=== PATIENT | male | born 1955 | race Caucasian/White ===

== ENCOUNTER 2017-11-01 05:01 | Emergency (ER) | payer MEDICARE ==
[~2017-11-01] VITALS: Ht 167.6 cm; Wt 66.0 kg
[~2017-11-01 05:01] MED LIST: BACLOFEN20 MG PO; DIAZEPAM5 MG PO; DILAUDID4 MG PO; EMBEDA; HYDROCODONE/ACE1 TAB PO; LEVETIRACETAM500 MG PO; MIRALAX3350 N1 PO; MORPHINE SUL30 M3 PO; ROPINIROLE3 MG PO; VIMPAT100 MG PO
[2017-11-01] MEDS ORDERED: ZUBSOLV SUB SL (05:23)
[2017-11-01 05:26] LABS: HEMATOCRIT 39.9 % (39.0-50.0); IMMATURE GRANULOCYTES 0.2 % (0.0-5.0); MEAN CELL VOLUME 89.9 fL CALC (80.0-100.0); MEAN CORPUSCULAR HGB 30.9 pG CALC (26.0-32.0); MEAN CORPUSCULAR HGB CONC 34.3 g/L CALC (32.0-36.0); NEUT# 3.65 thou/uL (1.82-7.42); RED BLOOD COUNT 4.44 mill/uL (4.70-6.10); RED CELL DISTRI WIDTH 14.6 % (11.5-15.5)
[2017-11-01 05:28] LABS: HEMOGLOBIN 13.7 g/dl (14.0-18.0)
[2017-11-01 06:09] LABS: MYOGLOBIN 60 ng/mL (0 - 121)
[2017-11-01 06:29] LABS: ALBUMIN 4.1 g/dL (3.2-5.0); ALKALINE PHOSPHATASE 52 u/l (38-126); ANION GAP 11 (6-22 (CALC)); BILIRUBIN, TOTAL 0.8 mg/dL (0.0-1.4); BUN 13 mg/dL (8-23); BUN/CREATININE RATIO 23 (12-20 (CALC)); CARBON DIOXIDE 29 mmol/l (22-30); CHLORIDE 105 mmol/l (95-108); CREATININE 0.6 mg/dL (0.7-1.3); GFR > 60 ML/MIN (>=60 (CALC)); GFR FOR AFR.AMER. > 60 ML/MIN (>=60 (CALC)); LIPASE 37 u/l (23-300); POTASSIUM 4.3 mmol/l (3.5-5.1); SGOT/AST 33 u/l (19-48); SGPT/ALT 23 u/l (11-66); SODIUM 141 mmol/l (137-146)
[2017-11-01 07:50] LABS: URINE BILIRUBIN - DIPSTICK NEGATIVE (NEGATIVE); URINE BLOOD DIPSTICK MODERATE (NEGATIVE); URINE COLOR YELLOW; URINE GLUCOSE - DIPSTICK NEGATIVE (NEGATIVE); URINE KETONE 15 mg/dL (NEGATIVE); URINE LEUK ESTERASE NEGATIVE (NEGATIVE); URINE PH 5.5 (4.5-8.0); URINE PROTEIN - DIPSTICK NEGATIVE (NEG-TRACE); URINE SPECIFIC GRAVITY >=1.030; URINE UROBILINOGEN - DIPSTICK 0.2 E.U./dL (0.2)
[2017-11-01 07:52] LABS: URINE CLARITY CLEAR
[2017-11-01 08:00] LABS: URINE EPITHELIAL CELLS RARE EPI/hpf (0-FEW); URINE NITRITE - DIPSTICK NEGATIVE (Negative); URINE WBC 0-2 WBC/hpf (0-5)
[2017-11-01] MEDS ORDERED: ONDANSETRON4 MG PO (08:03)
[2017-11-01] MEDS ORDERED: OMEPRAZOLE20 M2 PO (08:03)
[2017-11-01 08:07] VITALS: BP 120/62
== END 2017-11-01 08:16 | disposition home or self-care (01) ==
LOC: ED 05:01
PROVIDERS: Emergency Medicine; Family Medicine
DX: K52.9 Noninfective gastroenteritis and colitis, unspecified (principal); K29.70 Gastritis, unspecified, without bleeding; G40.909 Epilepsy, unspecified, not intractable, without status epilepticus; J44.9 Chronic obstructive pulmonary disease, unspecified; F43.10 Post-traumatic stress disorder, unspecified; F17.290 Nicotine dependence, other tobacco product, uncomplicated
CPT/HCPCS: Q9967

== ENCOUNTER 2018-02-21 12:47 | Emergency (ER) | payer MEDICARE ==
[~2018-02-21] VITALS: Ht 167.6 cm; Wt 70.9 kg
[~2018-02-21 12:47] MED LIST changes: +OMEPRAZOLE20 M2 PO; +ONDANSETRON4 MG PO; +ZUBSOLV SUB SL
[2018-02-21] MEDS ORDERED: LYRICA50 MG PO ×2 (13:02→13:19)
[2018-02-21 14:30] VITALS: BP 134/83
== END 2018-02-21 14:30 | disposition home or self-care (01) ==
LOC: ED 12:47
PROC: 2W3CX1Z Immobilization of Right Lower Arm using Splint (ICD-10-PCS; principal; 2018-02-21)
DX: S62.396A Other fracture of fifth metacarpal bone, right hand, initial encounter for closed fracture (principal); G40.909 Epilepsy, unspecified, not intractable, without status epilepticus; J44.9 Chronic obstructive pulmonary disease, unspecified; F43.10 Post-traumatic stress disorder, unspecified; F17.210 Nicotine dependence, cigarettes, uncomplicated; W22.09XA Striking against other stationary object, initial encounter; Y93.89 Activity, other specified; Y92.009 Unspecified place in unspecified non-institutional (private) residence as the place of occurrence of the external cause

== ENCOUNTER 2018-04-01 01:51 | Inpatient (IN) | payer MEDICARE ==
[2018-04-01] VITALS (41 sets, daily range): BP systolic 112–184; BP diastolic 72–100
[~2018-04-01] VITALS: Ht 167.6 cm; Wt 70.1 kg
[~2018-04-01 01:51] MED LIST changes: +LYRICA50 MG PO
[2018-04-01 02:37] LABS: HEMATOCRIT 44.9 % (39.0-50.0); HEMOGLOBIN 15.4 g/dl (14.0-18.0); IMMATURE GRANULOCYTES 0.2 % (0.0-5.0); MEAN CELL VOLUME 88.4 fL CALC (80.0-100.0); MEAN CORPUSCULAR HGB 30.3 pG CALC (26.0-32.0); MEAN CORPUSCULAR HGB CONC 34.3 g/L CALC (32.0-36.0); NEUT# 4.56 thou/uL (1.82-7.42); RED BLOOD COUNT 5.08 mill/uL (4.70-6.10); RED CELL DISTRI WIDTH 14.6 % (11.5-15.5)
[2018-04-01 02:40] LABS: URINE BILIRUBIN - DIPSTICK NEGATIVE (NEGATIVE); URINE BLOOD DIPSTICK SMALL (NEGATIVE); URINE COLOR YELLOW; URINE GLUCOSE - DIPSTICK NEGATIVE (NEGATIVE); URINE KETONE NEGATIVE (NEGATIVE); URINE LEUK ESTERASE NEGATIVE (NEGATIVE); URINE NITRITE - DIPSTICK NEGATIVE (Negative); URINE PH 5.5 (4.5-8.0); URINE PROTEIN - DIPSTICK NEGATIVE (NEG-TRACE); URINE SPECIFIC GRAVITY <=1.005; URINE UROBILINOGEN - DIPSTICK 0.2 E.U./dL (0.2)
[2018-04-01 02:44] LABS: COCAINE NEGATIVE (NEGATIVE); METHADONE NEGATIVE (NEGATIVE); TETRAHYDROCANNABIONOL POSITIVE (NEGATIVE)
[2018-04-01 02:45] LABS: BARBITURATES NEGATIVE (NEGATIVE); OXCYCODONE NEGATIVE (NEGATIVE); TRICYLIC ANTIDEPRESSANTS NEGATIVE (NEGATIVE)
[2018-04-01 02:47] LABS: URINE RBC 0-2 RBC/hpf (0-5); URINE SQUAMOUS EPITHELIAL CELL FEW EPI/hpf (0-FEW); URINE WBC 0-2 WBC/hpf (0-5)
[2018-04-01 02:51] LABS: ALBUMIN 4.7 g/dL (3.2-5.0); ALKALINE PHOSPHATASE 76 u/l (38-126); ANION GAP 17 (6-22 (CALC)); BILIRUBIN, TOTAL 0.4 mg/dL (0.0-1.4); BUN 10 mg/dL (8-23); BUN/CREATININE RATIO 15 (12-20 (CALC)); CARBON DIOXIDE 24 mmol/l (22-30); CHLORIDE 109 mmol/l (95-108); CREATININE 0.7 mg/dL (0.7-1.3); GFR > 60 ML/MIN (>=60 (CALC)); GFR FOR AFR.AMER. > 60 ML/MIN (>=60 (CALC)); POTASSIUM 4.2 mmol/l (3.5-5.1); SGOT/AST 27 u/l (19-48); SODIUM 146 mmol/l (137-146); TOTAL PROTEIN 7.7 g/dL (6.3-8.2)
[2018-04-01 02:52] LABS: ETHYL ALCOHOL 101 mg/dl (0-30)
[2018-04-01 23:27] LABS: HEMATOCRIT 45.3 % (39.0-50.0); HEMOGLOBIN 15.1 g/dl (14.0-18.0); IMMATURE GRANULOCYTES 0.3 % (0.0-5.0); MEAN CELL VOLUME 90.6 fL CALC (80.0-100.0); MEAN CORPUSCULAR HGB 30.2 pG CALC (26.0-32.0); MEAN CORPUSCULAR HGB CONC 33.3 g/L CALC (32.0-36.0); NEUT# 10.88 thou/uL (1.82-7.42); RED CELL DISTRI WIDTH 15.1 % (11.5-15.5)
[2018-04-01 23:39] LABS: ALBUMIN 3.8 g/dL (3.2-5.0); ALKALINE PHOSPHATASE 68 u/l (38-126); ANION GAP 11 (6-22 (CALC)); BILIRUBIN, TOTAL 0.8 mg/dL (0.0-1.4); BUN 7 mg/dL (8-23); BUN/CREATININE RATIO 11 (12-20 (CALC)); CARBON DIOXIDE 29 mmol/l (22-30); CHLORIDE 110 mmol/l (95-108); CREATININE 0.7 mg/dL (0.7-1.3); GFR > 60 ML/MIN (>=60 (CALC)); GFR FOR AFR.AMER. > 60 ML/MIN (>=60 (CALC)); MAGNESIUM 1.7 mg/dL (1.6-2.3); POTASSIUM 3.9 mmol/l (3.5-5.1); SGOT/AST 24 u/l (19-48); SODIUM 146 mmol/l (137-146); TOTAL PROTEIN 6.5 g/dL (6.3-8.2)
[2018-04-02] VITALS (106 sets, daily range): BP systolic 78–172; BP diastolic 3–97
[2018-04-02 06:17] LABS: HEMATOCRIT 47.4 % (39.0-50.0); HEMOGLOBIN 15.5 g/dl (14.0-18.0); IMMATURE GRANULOCYTES 0.4 % (0.0-5.0); MEAN CELL VOLUME 91.9 fL CALC (80.0-100.0); MEAN CORPUSCULAR HGB CONC 32.7 g/L CALC (32.0-36.0); NEUT# 13.93 thou/uL (1.82-7.42); RED BLOOD COUNT 5.16 mill/uL (4.70-6.10); RED CELL DISTRI WIDTH 15.3 % (11.5-15.5)
[2018-04-02 06:37] LABS: ALBUMIN 3.8 g/dL (3.2-5.0); ALKALINE PHOSPHATASE 74 u/l (38-126); AMYLASE 36 u/l (30-110); ANION GAP 12 (6-22 (CALC)); BILIRUBIN, TOTAL 0.6 mg/dL (0.0-1.4); BUN 8 mg/dL (8-23); BUN/CREATININE RATIO 11 (12-20 (CALC)); CARBON DIOXIDE 30 mmol/l (22-30); CHLORIDE 108 mmol/l (95-108); CREATININE 0.7 mg/dL (0.7-1.3); GFR > 60 ML/MIN (>=60 (CALC)); GFR FOR AFR.AMER. > 60 ML/MIN (>=60 (CALC)); LIPASE 27 u/l (23-300); MAGNESIUM 1.7 mg/dL (1.6-2.3); POTASSIUM 3.8 mmol/l (3.5-5.1); SGOT/AST 26 u/l (19-48); SODIUM 147 mmol/l (137-146); TOTAL PROTEIN 6.5 g/dL (6.3-8.2)
[2018-04-03] VITALS (57 sets, daily range): BP systolic 111–177; BP diastolic 71–97
[2018-04-03 05:21] LABS: HEMATOCRIT 44.1 % (39.0-50.0); HEMOGLOBIN 14.6 g/dl (14.0-18.0); IMMATURE GRANULOCYTES 0.7 % (0.0-5.0); MEAN CELL VOLUME 91.7 fL CALC (80.0-100.0); MEAN CORPUSCULAR HGB 30.4 pG CALC (26.0-32.0); MEAN CORPUSCULAR HGB CONC 33.1 g/L CALC (32.0-36.0); NEUT# 14.12 thou/uL (1.82-7.42); RED BLOOD COUNT 4.81 mill/uL (4.70-6.10); RED CELL DISTRI WIDTH 15.3 % (11.5-15.5)
[2018-04-03 05:52] LABS: ALKALINE PHOSPHATASE 61 u/l (38-126); AMYLASE < 30 u/l (30-110); ANION GAP 11 (6-22 (CALC)); BILIRUBIN, TOTAL 0.6 mg/dL (0.0-1.4); BUN 8 mg/dL (8-23); BUN/CREATININE RATIO 15 (12-20 (CALC)); CARBON DIOXIDE 25 mmol/l (22-30); CHLORIDE 108 mmol/l (95-108); CREATININE 0.5 mg/dL (0.7-1.3); GFR > 60 ML/MIN (>=60 (CALC)); GFR FOR AFR.AMER. > 60 ML/MIN (>=60 (CALC)); LIPASE 11 u/l (23-300); MAGNESIUM 1.6 mg/dL (1.6-2.3); POTASSIUM 3.8 mmol/l (3.5-5.1); SGOT/AST 21 u/l (19-48); SODIUM 140 mmol/l (137-146); TOTAL PROTEIN 5.3 g/dL (6.3-8.2)
[2018-04-03 05:56] LABS: ALBUMIN 2.8 g/dL (3.2-5.0)
[2018-04-04] VITALS (9 sets, daily range): BP systolic 134–170; BP diastolic 62–94
[2018-04-04 04:34] LABS: HEMATOCRIT 39.4 % (39.0-50.0); HEMOGLOBIN 13.6 g/dl (14.0-18.0); IMMATURE GRANULOCYTES 0.4 % (0.0-5.0); MEAN CELL VOLUME 87.9 fL CALC (80.0-100.0); MEAN CORPUSCULAR HGB 30.4 pG CALC (26.0-32.0); MEAN CORPUSCULAR HGB CONC 34.5 g/L CALC (32.0-36.0); NEUT# 12.34 thou/uL (1.82-7.42); RED BLOOD COUNT 4.48 mill/uL (4.70-6.10); RED CELL DISTRI WIDTH 14.4 % (11.5-15.5)
[2018-04-04 05:05] LABS: ALBUMIN 3.3 g/dL (3.2-5.0); ALKALINE PHOSPHATASE 69 u/l (38-126); AMYLASE < 30 u/l (30-110); ANION GAP 14 (6-22 (CALC)); BILIRUBIN, TOTAL 1.6 mg/dL (0.0-1.4); BUN 6 mg/dL (8-23); BUN/CREATININE RATIO 13 (12-20 (CALC)); CARBON DIOXIDE 25 mmol/l (22-30); CHLORIDE 103 mmol/l (95-108); CREATININE 0.4 mg/dL (0.7-1.3); GFR > 60 ML/MIN (>=60 (CALC)); GFR FOR AFR.AMER. > 60 ML/MIN (>=60 (CALC)); LIPASE 22 u/l (23-300); MAGNESIUM 1.4 mg/dL (1.6-2.3); POTASSIUM 3.4 mmol/l (3.5-5.1); SGOT/AST 32 u/l (19-48); SODIUM 139 mmol/l (137-146)
[2018-04-05] VITALS (15 sets, daily range): BP systolic 138–169; BP diastolic 61–92
[2018-04-05 04:57] LABS: HEMATOCRIT 37.5 % (39.0-50.0); IMMATURE GRANULOCYTES 0.4 % (0.0-5.0); MEAN CELL VOLUME 86.6 fL CALC (80.0-100.0); MEAN CORPUSCULAR HGB CONC 34.7 g/L CALC (32.0-36.0); NEUT# 7.7 thou/uL (1.82-7.42); RED BLOOD COUNT 4.33 mill/uL (4.70-6.10); RED CELL DISTRI WIDTH 13.9 % (11.5-15.5)
[2018-04-05 05:28] LABS: ALBUMIN 2.9 g/dL (3.2-5.0); ALKALINE PHOSPHATASE 59 u/l (38-126); AMYLASE < 30 u/l (30-110); BILIRUBIN, TOTAL 1.6 mg/dL (0.0-1.4); BUN 6 mg/dL (8-23); BUN/CREATININE RATIO 14 (12-20 (CALC)); CARBON DIOXIDE 27 mmol/l (22-30); CHLORIDE 103 mmol/l (95-108); CREATININE 0.5 mg/dL (0.7-1.3); GFR > 60 ML/MIN (>=60 (CALC)); GFR FOR AFR.AMER. > 60 ML/MIN (>=60 (CALC)); LIPASE 14 u/l (23-300); MAGNESIUM 1.7 mg/dL (1.6-2.3); SGOT/AST 43 u/l (19-48); SODIUM 141 mmol/l (137-146); TOTAL PROTEIN 5.4 g/dL (6.3-8.2)
[2018-04-05 05:39] LABS: ANION GAP 14 (6-22 (CALC)); POTASSIUM 2.6 mmol/l (3.5-5.1)
[2018-04-06] VITALS (10 sets, daily range): BP systolic 135–160; BP diastolic 72–91
[2018-04-06 05:13] LABS: HEMATOCRIT 36.7 % (39.0-50.0); HEMOGLOBIN 12.8 g/dl (14.0-18.0); IMMATURE GRANULOCYTES 0.3 % (0.0-5.0); MEAN CELL VOLUME 86.2 fL CALC (80.0-100.0); MEAN CORPUSCULAR HGB CONC 34.9 g/L CALC (32.0-36.0); NEUT# 6.38 thou/uL (1.82-7.42); RED BLOOD COUNT 4.26 mill/uL (4.70-6.10); RED CELL DISTRI WIDTH 13.9 % (11.5-15.5)
[2018-04-06 05:23] LABS: ALKALINE PHOSPHATASE 55 u/l (38-126); AMYLASE < 30 u/l (30-110); ANION GAP 11 (6-22 (CALC)); BILIRUBIN, TOTAL 1.2 mg/dL (0.0-1.4); BUN 5 mg/dL (8-23); BUN/CREATININE RATIO 12 (12-20 (CALC)); CARBON DIOXIDE 28 mmol/l (22-30); CHLORIDE 103 mmol/l (95-108); CREATININE 0.4 mg/dL (0.7-1.3); GFR > 60 ML/MIN (>=60 (CALC)); GFR FOR AFR.AMER. > 60 ML/MIN (>=60 (CALC)); LIPASE 26 u/l (23-300); MAGNESIUM 1.6 mg/dL (1.6-2.3); POTASSIUM 2.7 mmol/l (3.5-5.1); SGOT/AST 49 u/l (19-48); SODIUM 140 mmol/l (137-146); TOTAL PROTEIN 5.4 g/dL (6.3-8.2)
[2018-04-07] VITALS (13 sets, daily range): BP systolic 132–165; BP diastolic 74–96
[2018-04-07 05:21] LABS: HEMATOCRIT 36.1 % (39.0-50.0); HEMOGLOBIN 12.5 g/dl (14.0-18.0); IMMATURE GRANULOCYTES 0.3 % (0.0-5.0); MEAN CELL VOLUME 87.2 fL CALC (80.0-100.0); MEAN CORPUSCULAR HGB 30.2 pG CALC (26.0-32.0); MEAN CORPUSCULAR HGB CONC 34.6 g/L CALC (32.0-36.0); NEUT# 4.05 thou/uL (1.82-7.42); RED BLOOD COUNT 4.14 mill/uL (4.70-6.10); RED CELL DISTRI WIDTH 14.3 % (11.5-15.5)
[2018-04-07 05:44] LABS: ALBUMIN 2.9 g/dL (3.2-5.0); ALKALINE PHOSPHATASE 50 u/l (38-126); ANION GAP 6 (6-22 (CALC)); BILIRUBIN, TOTAL 0.9 mg/dL (0.0-1.4); BUN 8 mg/dL (8-23); BUN/CREATININE RATIO 21 (12-20 (CALC)); CARBON DIOXIDE 27 mmol/l (22-30); CHLORIDE 105 mmol/l (95-108); CREATININE 0.4 mg/dL (0.7-1.3); GFR > 60 ML/MIN (>=60 (CALC)); GFR FOR AFR.AMER. > 60 ML/MIN (>=60 (CALC)); SGOT/AST 48 u/l (19-48); SODIUM 135 mmol/l (137-146); TOTAL PROTEIN 5.5 g/dL (6.3-8.2)
[2018-04-08] VITALS (10 sets, daily range): BP systolic 148–174; BP diastolic 80–93
[2018-04-08 05:33] LABS: HEMATOCRIT 39.1 % (39.0-50.0); HEMOGLOBIN 13.1 g/dl (14.0-18.0); IMMATURE GRANULOCYTES 1.1 % (0.0-5.0); MEAN CELL VOLUME 88.1 fL CALC (80.0-100.0); MEAN CORPUSCULAR HGB 29.5 pG CALC (26.0-32.0); MEAN CORPUSCULAR HGB CONC 33.5 g/L CALC (32.0-36.0); NEUT# 4.74 thou/uL (1.82-7.42); RED BLOOD COUNT 4.44 mill/uL (4.70-6.10); RED CELL DISTRI WIDTH 14.5 % (11.5-15.5)
[2018-04-08 05:45] LABS: ALBUMIN 3.2 g/dL (3.2-5.0); ALKALINE PHOSPHATASE 56 u/l (38-126); ANION GAP 13 (6-22 (CALC)); BILIRUBIN, TOTAL 1.1 mg/dL (0.0-1.4); BUN 6 mg/dL (8-23); BUN/CREATININE RATIO 17 (12-20 (CALC)); CARBON DIOXIDE 27 mmol/l (22-30); CHLORIDE 105 mmol/l (95-108); CREATININE 0.4 mg/dL (0.7-1.3); GFR > 60 ML/MIN (>=60 (CALC)); GFR FOR AFR.AMER. > 60 ML/MIN (>=60 (CALC)); MAGNESIUM 1.8 mg/dL (1.6-2.3); SGOT/AST 59 u/l (19-48); SODIUM 141 mmol/l (137-146)
[2018-04-08 05:53] LABS: POTASSIUM 3.7 mmol/l (3.5-5.1)
[2018-04-09] VITALS (7 sets, daily range): BP systolic 119–149; BP diastolic 73–84
[2018-04-10] VITALS: BP 147/89
[2018-04-10 04:15] VITALS: BP 149/81
[2018-04-10 07:28] VITALS: BP 132/84
[2018-04-10 07:34] VITALS: BP 132/84
[2018-04-10] MEDS ORDERED: LISINOPRIL20 M1 PO (15:15)
[2018-04-10] MEDS ORDERED: PANTOPRAZOLE SO40 M1 PO (15:15)
[2018-04-10] MEDS ORDERED: TAB-A-VITE W/1 COMBO PO (15:15)
== END 2018-04-10 15:55 | disposition home or self-care (01) | DRG 917 ==
LOC: ED 01:51 → ED-I 02:57 → ED 03:15 → ICU 03:16 → MS2 04-09 22:05
PROVIDERS: Emergency Medicine; Internal Medicine Nephrology; ADMIT Internal Medicine; ATTEND Internal Medicine
PROC: 0BH17EZ Insertion of Endotracheal Airway into Trachea, Via Natural or Artificial Opening (ICD-10-PCS; principal; 2018-04-01)
PROC: 5A1945Z Respiratory Ventilation, 24-96 Consecutive Hours (ICD-10-PCS; 2018-04-01)
PROC: 0T9B70Z Drainage of Bladder with Drainage Device, Via Natural or Artificial Opening (ICD-10-PCS; 2018-04-01)
PROC: 0T9B70Z Drainage of Bladder with Drainage Device, Via Natural or Artificial Opening (ICD-10-PCS; 2018-04-05)
DX: T42.8X2A Poisoning by antiparkinsonism drugs and other central muscle-tone depressants, intentional self-harm, initial encounter (principal); J96.00 Acute respiratory failure, unspecified whether with hypoxia or hypercapnia; J69.0 Pneumonitis due to inhalation of food and vomit; G92 Toxic encephalopathy; T51.0X2A Toxic effect of ethanol, intentional self-harm, initial encounter; T40.7X2A Poisoning by cannabis (derivatives), intentional self-harm, initial encounter; G62.9 Polyneuropathy, unspecified; J44.9 Chronic obstructive pulmonary disease, unspecified; F43.10 Post-traumatic stress disorder, unspecified; K11.7 Disturbances of salivary secretion; G40.409 Other generalized epilepsy and epileptic syndromes, not intractable, without status epilepticus; F32.9 Major depressive disorder, single episode, unspecified; M19.90 Unspecified osteoarthritis, unspecified site; G89.29 Other chronic pain; M54.9 Dorsalgia, unspecified; E87.6 Hypokalemia; T48.6X5A Adverse effect of antiasthmatics, initial encounter; R33.9 Retention of urine, unspecified; F10.129 Alcohol abuse with intoxication, unspecified; Y92.009 Unspecified place in unspecified non-institutional (private) residence as the place of occurrence of the external cause
CPT/HCPCS: J2060; S0164

== ENCOUNTER 2018-04-11 07:38 | Inpatient (IN) | payer MEDICARE ==
[~2018-04-11] VITALS: Ht 167.6 cm; Wt 73.0 kg
[2018-04-11] VITALS (44 sets, daily range): BP systolic 80–142; BP diastolic 51–76
[~2018-04-11 07:38] MED LIST changes: +LISINOPRIL20 M1 PO; +PANTOPRAZOLE SO40 M1 PO; +TAB-A-VITE W/1 COMBO PO
--- NOTE | 2018-04-11 07:38 | NUR ---
to room 12 via stretcher by ems. isadora. 911 called as pt fell and unable to get up. denies alcohol or drug use this am. at bedside
[2018-04-11 08:19] LABS: HEMATOCRIT 35.9 % (39.0-50.0); HEMOGLOBIN 11.9 g/dl (14.0-18.0); IMMATURE GRANULOCYTES 0.4 % (0.0-5.0); MEAN CELL VOLUME 90.7 fL CALC (80.0-100.0); MEAN CORPUSCULAR HGB 30.1 pG CALC (26.0-32.0); MEAN CORPUSCULAR HGB CONC 33.1 g/L CALC (32.0-36.0); NEUT# 8.28 thou/uL (1.82-7.42); RED BLOOD COUNT 3.96 mill/uL (4.70-6.10); RED CELL DISTRI WIDTH 14.8 % (11.5-15.5)
[2018-04-11 08:33] LABS: ALBUMIN 3.5 g/dL (3.2-5.0); ALKALINE PHOSPHATASE 60 u/l (38-126); ANION GAP 13 (6-22 (CALC)); BILIRUBIN, TOTAL 0.6 mg/dL (0.0-1.4); BUN 14 mg/dL (8-23); BUN/CREATININE RATIO 21 (12-20 (CALC)); CARBON DIOXIDE 30 mmol/l (22-30); CHLORIDE 103 mmol/l (95-108); CREATININE 0.6 mg/dL (0.7-1.3); GFR > 60 ML/MIN (>=60 (CALC)); GFR FOR AFR.AMER. > 60 ML/MIN (>=60 (CALC)); SGOT/AST 47 u/l (19-48); SODIUM 142 mmol/l (137-146); TOTAL PROTEIN 6.2 g/dL (6.3-8.2)
[2018-04-11 08:37] LABS: ETHYL ALCOHOL 0 mg/dl (0-30)
--- NOTE | 2018-04-11 09:05 | NUR ---
0805 VERSED 2 MG 0807 VERSED 2 MG 0809 8 TUBE AT 24 CM 0811 VERSED 2 MG 0812 PROPOFOL DRIP STARTED
[2018-04-11 09:37] LABS: URINE BILIRUBIN - DIPSTICK NEGATIVE (NEGATIVE); URINE BLOOD DIPSTICK TRACE-INTACT (NEGATIVE); URINE COLOR YELLOW; URINE GLUCOSE - DIPSTICK NEGATIVE (NEGATIVE); URINE KETONE NEGATIVE (NEGATIVE); URINE LEUK ESTERASE NEGATIVE (NEGATIVE); URINE NITRITE - DIPSTICK NEGATIVE (Negative); URINE PROTEIN - DIPSTICK NEGATIVE (NEG-TRACE); URINE SPECIFIC GRAVITY 1.015; URINE UROBILINOGEN - DIPSTICK 0.2 E.U./dL (0.2)
[2018-04-11 09:45] LABS: BARBITURATES NEGATIVE (NEGATIVE); COCAINE NEGATIVE (NEGATIVE); METHADONE NEGATIVE (NEGATIVE); TETRAHYDROCANNABIONOL POSITIVE (NEGATIVE); TRICYLIC ANTIDEPRESSANTS NEGATIVE (NEGATIVE)
[2018-04-11 09:46] LABS: OXCYCODONE NEGATIVE (NEGATIVE)
--- NOTE | 2018-04-11 09:46 | NUR ---
TRANSPORTED PT TO CT WITHOUT INCIDENT.PT O2 SUPPLY AMBU. SPO2 100%. RN SHERRON AT BEDSIDE. PT NOW IN ED, NO SIGN OF DISTRESS. HEAD OF BED AT 45 ANGLE.
--- NOTE | 2018-04-11 10:13 | NUR ---
PT HAS REQUIRED INTUBATION, INDICATED ABOVE. PT WITH LABORED BREATHING, SNORING LOUDLY, SATS IN THE 80s. AFTER, PT HAS BEEN TO CT AND BACK WITHOUT INCIDENT. AUGUST HAS BEEN PLACED, 16F. ATTEMPTS TO PLACE OG/NG UNSUCCESSFUL. DIPRIVAN TITRATED FOR EFFECT, NOW SEEN TO BE 50 MCG/KG/MIN.
--- NOTE | 2018-04-11 11:34 | NUR ---
BP HAS BEEN LOW, NOW 88/52. DIPRIVAN AT 45MCG/KG/MIN, TITRATED DOWN RECENTLY FOR LOW BP. NS 500/HR. O-2 SATS 97% WHILE VENTED.
--- NOTE | 2018-04-11 12:27 | NUR ---
REPORT CALLED TO CORNELIA BROWN IN ICU, TO UNIT SOON. PT REMAINS BEFORE, SEDATED AND INTUBATED.
--- NOTE | 2018-04-11 13:00 | NUR ---
male pt received to ICU bed 2 from ER via stretcher accompanied by Rachel Nelson RN, Ulices BAXTER, Angélica Manzano RT; pt intuabted and sedated; transferred to bed x4 staff; admission assessment completed at this time; pt intubated/ sedated; past med hx obtained from prev admission; arousable to tactile stimuli; no facial grimaces of pain noted; no n/v noted; resp even and unlabored; lungs coarse throughout; skin color wnl; vent intact and maintained with settings of AC, rate 18, TV 550, Peep 5.0, 40% FiO2; 8.0Fr ETT secured at the 24cm lip line; NG tube attempted, unsuccessful; og placed to lis with immed return of light brown gastric content; hr reg; strong pulses; no edema noted; bilat scd's placed; sr on monitor; abd soft with bs present; no bm noted per field underwriter; of confirmed with air insertion/ ascult; #20 in lh patent with diprivan gtt infusing at 45mcg/kg/min (dose weight 80kg); #18 ems site flushed and patent; no redness or edema noted at site; abrasions noted to right elbow; repositioned; oral care with suctioning; will continue to monitor
--- NOTE | 2018-04-11 13:40 | NUR ---
deputy Stone present on unit to serve legal documents; informed per this sports book writer pt is unresponsive/sedated; document remain with
--- NOTE | 2018-04-11 14:45 | NUR ---
Dr Vallejo present at bedside to assess pt; pt sedated; sedation to be placed on hold for awakening trial; restraints placed
--- NOTE | 2018-04-11 15:00 | NUR ---
son Mark present at bedside; states per pt , pt was mumbling and unable to climb up stairs; pt fell and was unable to get up; mail left at bedside per son; son updated on condition; will continue to monitor
--- NOTE | 2018-04-11 15:15 | NUR ---
pt awake; able to nod head to yes or no questions; pt denies using drugs; able to follow commands; MD notified; sedation to continue at low dose; will continue to monitor
--- NOTE | 2018-04-11 15:50 | NUR ---
Dr Vallejo present at bedside; capri continued as per orders; central line at bedside; MD to attempt access; will continue to monitor
--- NOTE | 2018-04-11 16:06 | NUR ---
intubated/sedated; no apparent distress noted; Dr Vallejo present at bedside attempting central line to RIJ; Kendra Hardy, RN at bedside to assist; sr on monitor; bp stable; diprivan gtt continues per protocol; will continue to monitor closely
--- NOTE | 2018-04-11 16:30 | NUR ---
DIANDRA central line placement unsuccessful; MD at bedside to attempt for right femoral site; will continue to monitor
--- NOTE | 2018-04-11 16:50 | NUR ---
TLC inserted per Dr Vallejo to right femoral; iv flushed and patent; blood return noted only from blue lumen; dressing cdi; xray to be ordered for confirmation of placement; sr on monitor; vent maintained with prev charted settings; will continue to monitor
--- NOTE | 2018-04-11 17:20 | NUR ---
neurology technician at bedside; Dr Vallejo at bedside to view xray
--- NOTE | 2018-04-11 17:58 | NUR ---
intubated and sedated; wrist restraints intact; no apparent distress noted; vent maintained; sr on monitor; martinez to gravity; diprivan gtt at 35mcg/kg/min;
--- NOTE | 2018-04-11 18:14 | NUR ---
OG TUBE ADVANCED PER RECOMMENDATION
--- NOTE | 2018-04-11 19:30 | NUR ---
vent cont unassisted by pt. coarse breath sounds bilat. hall monitor shows sinus rhythm. og tube repositioned & cont to lis draining small amt brown liquid. #20 lt hand diprivan infusing @ 35mcg/kg/min. #18 lac rl infusing @ 125cchr. rt fem tlc in place & is saline locked. martinez cath in place. urine VERY cloudy/pus-like appearance. bilat wrist rests & scds conts. requires total care for all needs. turned & repositioned. fall precautions cont.
--- NOTE | 2018-04-11 22:00 | NUR ---
vent cont unassisted by pt. clinical research monitor shows sinus rhythm.
[2018-04-12] VITALS (40 sets, daily range): BP systolic 95–159; BP diastolic 53–84
--- NOTE | 2018-04-12 00:01 | NUR ---
eyes closed. vent cont unassisted by pt. martinez cont to drain pus-like yellow urine.
--- NOTE | 2018-04-12 02:00 | NUR ---
vent cont unassisted by pt. turned & repositioned.
--- NOTE | 2018-04-12 04:45 | NUR ---
blood drawn & sent to lab.
--- NOTE | 2018-04-12 04:50 | NUR ---
bath & linen chg x2 assists.
--- NOTE | 2018-04-12 05:00 | NUR ---
xray here. pcxr obtained.
--- NOTE | 2018-04-12 05:40 | NUR ---
rt here. abgs drawn.
[2018-04-12 06:14] LABS: HEMATOCRIT 30.7 % (39.0-50.0); HEMOGLOBIN 10.3 g/dl (14.0-18.0); IMMATURE GRANULOCYTES 0.3 % (0.0-5.0); MEAN CORPUSCULAR HGB 30.2 pG CALC (26.0-32.0); MEAN CORPUSCULAR HGB CONC 33.6 g/L CALC (32.0-36.0); NEUT# 4.09 thou/uL (1.82-7.42); RED BLOOD COUNT 3.41 mill/uL (4.70-6.10); RED CELL DISTRI WIDTH 15.3 % (11.5-15.5)
[2018-04-12 06:27] LABS: ALBUMIN 2.4 g/dL (3.2-5.0); ALKALINE PHOSPHATASE 48 u/l (38-126); AMYLASE < 30 u/l (30-110); ANION GAP 8 (6-22 (CALC)); BILIRUBIN, TOTAL 0.4 mg/dL (0.0-1.4); BUN 9 mg/dL (8-23); BUN/CREATININE RATIO 19 (12-20 (CALC)); CARBON DIOXIDE 29 mmol/l (22-30); CHLORIDE 105 mmol/l (95-108); CREATININE 0.5 mg/dL (0.7-1.3); GFR > 60 ML/MIN (>=60 (CALC)); GFR FOR AFR.AMER. > 60 ML/MIN (>=60 (CALC)); LIPASE 15 u/l (23-300); MAGNESIUM 1.8 mg/dL (1.6-2.3); POTASSIUM 3.3 mmol/l (3.5-5.1); SGOT/AST 42 u/l (19-48); SODIUM 139 mmol/l (137-146); TOTAL PROTEIN 4.7 g/dL (6.3-8.2)
--- NOTE | 2018-04-12 07:20 | NUR ---
intubated and sedated; no apparent distress noted; assessment completed at this time; pt opens eyes and make contact with this song writer when name is called; intermit spont awakening noted as well; no facial grimaces of pain noted; pupils reactive; resp even and unlabored; lungs coarse throughout; skin color wnl; vent intact and patent with 40% FiO2; o2 sat 96-99%; hr reg; strong pulses; no edema noted; sr-st on monitor; bilat scd's intact; abd soft with bs hypoactive; no bm noted per song writer; og tube intact with dk drown gastric content noted; placement confirmed via air insertion/auscult; martinez to gravity draining cloudy dk yellow urine; #18 ems site flushed and patent to lac; TLC flushed and patent to right femoral with ivf infusing as per orders; diprivan gtt at 35mcg/kg/min; blood return noted from blue lumen only; redness noted to left chest wall; abrasion noted to right elbow; repositioned to left side; oral care/suctioning; bilat wrist restraints released and reapplied for nursing care; will continue to monitor
--- NOTE | 2018-04-12 08:03 | NUR ---
intuabted and sedated; no apparent distress noted; iv patent; diprivan gtt cont at 40mcg/kg/min; no redness or edema noted at site; vent maintained with 40% FiO2; martinez to gravity; RT at bedside for suctioning; sr on monitor; will continue to monitor
--- NOTE | 2018-04-12 09:30 | NUR ---
Ladonna Marrero NP present at bedside to assess pt and discuss plan of care
--- NOTE | 2018-04-12 10:00 | NUR ---
intubated and sedated; opens eyes when name is called; resp even and unlabored; vent intact and maintained; martinez to gravity draining well; iv patent with diprivan gtt infusing at 40mcg/kg/min; repositioned to right side; oral care/ suctioning; restraints released and reapplied; sr on monitor; will continue to monitor
--- NOTE | 2018-04-12 10:42 | NUR ---
INFORMED ASUNCION BAXTER RE: TROPONIN BEING 0.[address] YANG
--- NOTE | 2018-04-12 12:00 | NUR ---
intubated and sedated; sr on monitor; martinez to gravity; iv patent; propofol gtt continues at 40mcg/kg/min; no redness or edema noted at site; vent maintained; repositioned; oral care; hob eleavted; will continue to monitor
--- NOTE | 2018-04-12 12:50 | NUR ---
Dr aT and Ladonna Marrero SALES FORCE DEVELOPER present at bedside; sedation has been titrated down; pt awake but drowsy; pt able to follow some commands; ETT suctioned; RT at bedside; restraints continues; pt to remain intubated today; sedation resumed at 40mcg/kg/min; OG tube advanced as per MD request/ noted in proximal stomach; martinez to gravity; repositioned; will continue to monitor
--- NOTE | 2018-04-12 14:02 | NUR ---
intubated/sedated; no apparent distress noted; vent maintained; martinez tp gravity; iv patent; diprivan gtt at 40mcg/kg/min; repositioned; will continue to monitor
--- NOTE | 2018-04-12 16:00 | NUR ---
intubated and sedated; no apparent distress noted; resp even and unlabored; pati maintained; repositioned to supine position; iv patent; fluids/ diprivan gtt infusing per orders/protocol; iv free from redness or edema; sr on monitor; martinez to gravity; oral care/ suctioning; will continue to monitor
--- NOTE | 2018-04-12 18:05 | NUR ---
intubated and sedated; no apparent distress noted; vent maintained; martinez to gravity; sr on monitor; iv patent; no redness or edema noted at site; diprivan gtt at 40mcg/kg/min; repositioned; restraints intact;
--- NOTE | 2018-04-12 19:00 | NUR ---
grimaces when light turned on. vent cont assisted by pt. cardiac rehabilitation program director shows sinus rhythm. #18 lac saline lock. rt fem tlc in place. rl infusing @ 125cchr diprivan infusing @ 40mcg/kg/min. martinez cath in place draining cloudy yellow urine. requires total care for all needs. bilat scds, wrist restraints & fall precautions cont.
--- NOTE | 2018-04-12 22:00 | NUR ---
vent cont unassisted by pt. tie up worker shows sinus rhythm.
[2018-04-13] VITALS (62 sets, daily range): BP systolic 108–193; BP diastolic 57–103
--- NOTE | 2018-04-13 00:05 | NUR ---
blood drawn & sent to lab.
--- NOTE | 2018-04-13 02:00 | NUR ---
vent cont unassisted by pt. ivf infusing well. turned & repositioned.
--- NOTE | 2018-04-13 04:50 | NUR ---
blood drawn & sent to lab. rt here. abgs drawn & ekg done.
--- NOTE | 2018-04-13 05:00 | NUR ---
xray here. pcxr obtained. am care given. cas rome.
[2018-04-13 05:31] LABS: HEMATOCRIT 30.7 % (39.0-50.0); HEMOGLOBIN 10.2 g/dl (14.0-18.0); MEAN CORPUSCULAR HGB 29.6 pG CALC (26.0-32.0); MEAN CORPUSCULAR HGB CONC 33.2 g/L CALC (32.0-36.0); NEUT# 3.57 thou/uL (1.82-7.42); RED BLOOD COUNT 3.45 mill/uL (4.70-6.10); RED CELL DISTRI WIDTH 15.3 % (11.5-15.5)
[2018-04-13 05:34] LABS: ANION GAP 11 (6-22 (CALC)); BUN 8 mg/dL (8-23); BUN/CREATININE RATIO 17 (12-20 (CALC)); CARBON DIOXIDE 26 mmol/l (22-30); CHLORIDE 104 mmol/l (95-108); CREATININE 0.5 mg/dL (0.7-1.3); GFR > 60 ML/MIN (>=60 (CALC)); GFR FOR AFR.AMER. > 60 ML/MIN (>=60 (CALC)); POTASSIUM 3.7 mmol/l (3.5-5.1); SODIUM 137 mmol/l (137-146)
--- NOTE | 2018-04-13 07:10 | NUR ---
pt fully awake; working against vent; vent with cont alarming; RT at bedside; diprivan titrated for mod level of sedation; will continue to monitor
--- NOTE | 2018-04-13 07:20 | NUR ---
pt awake but drowsy; no apparent distress noted; assessment completed at this time; pt alert and able to focus on this senior copywriter; pt able to nod to yes and no questions; pt able to follow some commands; facial grimaces noted; resp even and unlabored; lungs coarse throughout; skin color wnl; vent intact with settings of AC, rate 18, TV 550, Peep 5.0, 40% FiO2; 8.0 ETT secured at 24 cm lip line; suctioned orally and ETT; hr reg; strong pulses; no edema noted; bilat scd's; st on monitor; abd soft with bs present; no bm noted per senior copywriter; og tube intact/placement confirmed with air insertion/auscult; martinez to gravity with clear yellow urine; #18 to lac saline locked; TLC to right femoral; iv flushed and patent; no redness or edema noted at sites; ivf infusing/diprivan gtt per protocol; abrasion/blister noted to right cheeck and right elbow; redness noted to left chest wall; repositioned; will continue to monitor
--- NOTE | 2018-04-13 07:31 | NUR ---
Reported to Dr Ta prelim blood cultures positive for gm pos cocci in 1 bottle.
--- NOTE | 2018-04-13 08:08 | NUR ---
intubated and sedated; pt attempts to open eyes when name is called; iv patent; diprivan gtt at 50mcg/kg/min; vent maintained; martinez to gravity; sr on monitor; will continue to monitor
--- NOTE | 2018-04-13 09:18 | NUR ---
Ladonna Marrero NP present at bedside; pt to be switched to SIMV mode; weaning to start
--- NOTE | 2018-04-13 09:27 | NUR ---
RT Natacha at bedside; vent mode changed at this time;
--- NOTE | 2018-04-13 10:00 | NUR ---
pt fully awake; able to focus on engineering writer and follow some commands; sr-st on monitor; iv patent; fluids infusing without complication; diprivan gtt at 20 mcg/kg/min; martinez to gravity; repositioned; oral care with suctioning; restraints intact; vent cont in SIMV mode; engineering writer remains at bedside
--- NOTE | 2018-04-13 10:08 | NUR ---
Ladonna Garza NP present at bedside to assess pt; pt follows her commands; diprivan to be increased for light sedated;
--- NOTE | 2018-04-13 11:30 | NUR ---
order received from MATTHEW Marrero to start weaning capri; Dr aT to arrive shortly
--- NOTE | 2018-04-13 12:00 | NUR ---
awake but drowsy; no apparent distress noted; resp even and unlabored; RT at bedside for vent changes; st on monitor; iv patent; no redness or edema noted at site; restraints continue; martinez to gravity; staff remains at bedside; will continue to monitor
--- NOTE | 2018-04-13 12:04 | NUR ---
Dr Ta and MATTHEW Marrero present at bedside to assess pt and discuss plan of care
--- NOTE | 2018-04-13 12:23 | NUR ---
RT at bedside for abg
--- NOTE | 2018-04-13 12:35 | NUR ---
Dr Ta and Ladonna Marrero DOCUMENTATION BILLING CLERK present at bedside; pt extubated as per orders; restraints discontinued; og discontiuned; pt admits to going home and using snorting meth; pt alert to person, place and year; o2 per nc applied; plan of care explained; will continue to monitor
--- NOTE | 2018-04-13 12:38 | NUR ---
09:30 PT PLACED ON SIMV MODE PER DR. YANG. PT TOLLERATED WELL. VT 567 RR 191 11:30 PT PT PLANCED ON PRESSURE SUPPORT OF 10. RN AT BEDSIDE. PT TOLLERATING WELL. ABG IN [address] YANG. ABG RESULTS MEET CRITERIA FOR SBT. RR22 HR101 SPO2 96% NO SIGN OF INCREASED WORK OF BREATHING. 12:35 PT EXTUBATED TO 3LNC SPO2 REMAINS 96%. PT ABLE TO LIFT HEAD OFF BED AND COUGH ON COMMAND. KEVIN LOCKE AT BEDSIDE. NURSING GUARD SERGEANT SONU IN ROOM
--- NOTE | 2018-04-13 14:10 | NUR ---
awake oriented; calm and cooperative; no distress noted; resp even and unlabored; o2 sat 96% on 3L; moist loose cough; suction at bedside; no resp distress noted; st on monitor; martinez to gravity; iv patent; no redness or edema noted at site; call light within reach; will continue to monitor
--- NOTE | 2018-04-13 16:04 | NUR ---
awake in bed; offers no complaints; no apparent distress/no resp distress noted; iv intact and patent; martinez to gravity; sr on monitor; o2 per nc; call light within reach; will continue to monitor
--- NOTE | 2018-04-13 18:20 | NUR ---
awake in bed; offers no complaints; no distress noted; resp even and unlabored; tolerated clear liquids well; coffee provided per pt request; iv patent; no redness or edema noted at site; martinez to gravity; sr on monitor; o2 per nc; call light within reach
--- NOTE | 2018-04-13 19:00 | NUR ---
awake. denies resp diff. o2 cont per nc. cardiac care nurse shows sinus rhythm. rt fem tlc in place. rl infusing @ 50cchr. po fluids taken well. martinez cath in place. urine clear yellow. bilat scds & fall precautions cont. bed alarm on. spoke to pt @ length about meth use. pt admits smoking meth then denies use. admits "it has to be my son." asked pt how sons meth got into his system. pt has no answer. pt admits "sometimes me & my smoke a little weed but we don't do meth." latesha act in place.
--- NOTE | 2018-04-13 19:15 | NUR ---
pt requests portable phone so he can call his . phone given.
--- NOTE | 2018-04-13 20:30 | NUR ---
phone retrieved. pt admits he told his that he "didn't do meth." also admits "she's mad about the [employer]. she wants me out of the house. i gotta leave here tomorrow & find me a place to live." pt reassured. bed alarm cont.
--- NOTE | 2018-04-13 22:00 | NUR ---
eyes closed. no distress. night monitor shows sinus rhythm.
[2018-04-14] VITALS (13 sets, daily range): BP systolic 124–170; BP diastolic 70–87
--- NOTE | 2018-04-14 00:01 | NUR ---
eyes closed. no distress. o2 cont.
--- NOTE | 2018-04-14 02:00 | NUR ---
resting quietly. resps even & unlabored. no apparent distress.
--- NOTE | 2018-04-14 04:00 | NUR ---
eyes closed. no apparent distress. patient monitor shows sinus rhythm.
--- NOTE | 2018-04-14 06:00 | NUR ---
awake. watching tv. asks about [place] act. all questions answered.
--- NOTE | 2018-04-14 08:15 | NUR ---
PT SEEN AWAKE, ALERT, ORIENTED X 3 HE RESTS IN THE BED, 3 LPM NC. LUNG SOUNDS DECREASED THROUGHTOUT. PT ABLE TO REMEMBER HIS RESPIRATORY DISTRESS PRIOR TO COMING IN TO HOSPITAL THIS TIME. PT CONTINUES TO DENY USING METH, NOW THINKS MARIJUANA MAY HAVE CONTAINED THIS. PT HAS CALLED HIS AT HOME, BUT DID NOT SPEAK WITH HER. SOMEONE TOLD HIM THAT SHE RAN OFF WITH "SHERI," HIS BEST FRIEND. PT AWARE OF PENDING [facility] UPON DISCHARGE FROM [facility].
--- NOTE | 2018-04-14 11:17 | NUR ---
PT SEEN BY DR HARDIN THIS MORNING, APPEARS READY FOR DISCHARGE TO PSYCH FACILITY. NUMEROUS FAMILY ISSUES. RIGHT FEMORAL TLC WAS REMOVED, BLEEDING CONTROLLED WITH DIRECT PRESSURE TO AREA FOR 15-20 MINUTES. PT AT REST IN THE BED, NO DISTRESS.
--- NOTE | 2018-04-14 12:47 | NUR ---
PT SEEN RESTING IN THE BED, NO DISTRESS. IV REMOVAL SITE WITHOUT SWELLING OR OOZING.
--- NOTE | 2018-04-14 14:31 | NUR ---
AUGUST CATHETER REMOVED WITHOUT INCIDENT; PT PROVIDED URINAL. PT HAS ALSO BATHED HIMSELF, GOWN AND BED CHANGED.
--- NOTE | 2018-04-14 16:16 | NUR ---
PT ANTICIPATING DISPOSITION IF ROOM OPENS AT PSYCH FACILITY. PT HAS BEEN UP TO CHAIR, AMBULATORY IN ROOM, NO DISTRESS. AUGUST OUT; TLC OUT EARLIER, SITE WITHOUT HEMATOMA OR BLEEDING.
--- NOTE | 2018-04-14 18:10 | NUR ---
PT UPDATED ON BED SITUATION IN [facility] FAC[facility]ITIES, CONTINUES TO WAIT PATIENTLY FOR AN OPENING. NO COMPLAINTS, NO SHORTNESS OF BREATH. PT DRINKS SEVERAL CUPS OF COFFEE THROUGHOUT THE DAY.
--- NOTE | 2018-04-14 19:15 | NUR ---
PT. SITTING UP IN BED WITH NO DISTRESS NOTED; CALM; ASSESSMENT COMPLETED; PT. WITHOUT IV SITE AND PER REPORT MD IS AWARE AND TLC WAS REMOVED PREVIOUSLY IN THE DAY FROM RIGHT GROIN; NO BLEEDING OR BRUISING NOTED TO SITE; SPO2 93% ON RA;PT. IS A/A/OX3; DOES NOT SHOW ANY S/S OF SUICIDAL INTENTIONS AT THIS TIME; WILL CONTINUE TO MONITOR. AWAITING A BED AT PSYCH FACILTIY. ENCOURAGED TO CALL FOR ANY NEEDS; URINAL EMPTIED OF 200MLS OF DARK YELLOW URINE; COFFEE PROVIDED; CALL LIGHT IS IN REACH.
--- NOTE | 2018-04-14 20:00 | NUR ---
SPOKE WITH SONAM AT [facility] AND GAVE REPORT ON PT; PER SONAM SHE WILL CALL BACK AFTER SPEAKING WITH MD OVER AT HER FACILITY; WILL AWAIT RETURN PHONE CALL.
--- NOTE | 2018-04-14 20:17 | NUR ---
B/P 169/75 AND HR 97; MEDICATED WITH ORDERED LISINOPRIL ALONG WITH OTHER SCHED MEDICATIONS; WILL REASSESS B/P; PO FLUIDS OFFERED; SITTER IS AT BEDSIDE;
--- NOTE | 2018-04-14 22:00 | NUR ---
SPOKE WITH KP, POLYSOMNOGRAPHY TECH ON UPDATE FOR BED FOR PT. AND OF NOW BED AT [facility], AND PAPER WORK FAXED TO [facility]; WILL AWAIT ANY NEW PHONE CALLS.
--- NOTE | 2018-04-14 22:00 | NUR ---
SPOKE WITH RING SPINNER, KP, AND OF NOW NO BED AVAILABLE AT [place] AT THIS TIME AND SHE HAS FAXED PAPER WORK TO [facility]; WILL AWAIT PHONE CALL.
--- NOTE | 2018-04-14 23:18 | NUR ---
2314-RECEIVED PHONE CALL FROM JEANNIE AT [facility] AND PER HER THEY WILL ACCEPT PT. AT FACILITY; 2318-SPOKE WITH [facility] [place] OFFICE AND INQUIRED UPON TRANSPORTATION FOR [facility]; THEY WILL CALL THIS [facility] NURSE WHEN OFFICER IS DISPATCHED; WILL AWAIT RETURN CALL.
--- NOTE | 2018-04-14 23:40 | NUR ---
TRANSPORTATION IS ON ITS WAY PER [facility] DEPT. WILL AWAIT; PT. UPDATED;
--- NOTE | 2018-04-14 23:55 | NUR ---
PT. PAT'Rachel VIA W/C ACCOMPANIED BY LANDSCAPING SPECIALIST AND BALLAST REGULATOR OPERATOR; PT. GARZA; CALLED AND NOTIFIED ILDEFONSO AT [facility] THAT PTDoug IS ON HIS WAY;
== END 2018-04-14 23:55 | DRG 917 ==
LOC: ED 07:38 → ED-I 07:51 → ED 11:02 → ICU 11:03
PROVIDERS: Emergency Medicine; Nurse Practitioner Family; ADMIT Internal Medicine Nephrology; ATTEND Internal Medicine Nephrology
PROC: 06HM33Z Insertion of Infusion Device into Right Femoral Vein, Percutaneous Approach (ICD-10-PCS; principal; 2018-04-11)
PROC: 5A1945Z Respiratory Ventilation, 24-96 Consecutive Hours (ICD-10-PCS; 2018-04-11)
PROC: 0BH17EZ Insertion of Endotracheal Airway into Trachea, Via Natural or Artificial Opening (ICD-10-PCS; 2018-04-11)
DX: T43.622A Poisoning by amphetamines, intentional self-harm, initial encounter (principal); J96.02 Acute respiratory failure with hypercapnia; J69.0 Pneumonitis due to inhalation of food and vomit; J96.01 Acute respiratory failure with hypoxia; J44.1 Chronic obstructive pulmonary disease with (acute) exacerbation; I24.8 Other forms of acute ischemic heart disease; T40.7X2A Poisoning by cannabis (derivatives), intentional self-harm, initial encounter; F15.10 Other stimulant abuse, uncomplicated; F12.10 Cannabis abuse, uncomplicated; G40.909 Epilepsy, unspecified, not intractable, without status epilepticus; F43.10 Post-traumatic stress disorder, unspecified; M19.90 Unspecified osteoarthritis, unspecified site; F32.9 Major depressive disorder, single episode, unspecified; E87.6 Hypokalemia; F20.9 Schizophrenia, unspecified; F17.210 Nicotine dependence, cigarettes, uncomplicated; D63.8 Anemia in other chronic diseases classified elsewhere
CPT/HCPCS: J0692; J1650; S0164